=== PATIENT | male | born 1945 | race African-American/Black ===

== ENCOUNTER 2019-04-06 12:19 | Emergency (ER) | payer SELFPAY ==
[~2019-04-06] VITALS: Ht 182.9 cm; Wt 68.0 kg
[2019-04-06 12:35] VITALS: BP 107/89
[2019-04-06] MEDS ORDERED: METHYLPREDNISOLONE SOD SUCC 125 MG/2 ML VIAL IV STA (12:40)
[2019-04-06] MEDS ORDERED: IPRATROPIUM BROMIDE (0.02%) 0.5MG/2.5ML NEB HHN STA (12:40)
[2019-04-06] MEDS ORDERED: ALBUTEROL (0.083%) 2.5MG/3ML NEB HHN STA (12:40)
[2019-04-06] MEDS ORDERED: MAGNESIUM 2 G PREMIX 50 ML IV ONE (12:45)
[2019-04-06 13:07] LABS: CHLORIDE 105 mEq/L (98-107)
[2019-04-06 13:09] LABS: HEMATOCRIT. 42.6 % (42.0-52.0); HEMOGLOBIN. 13.6 g/dL (14.0-18.0); MEAN CORPUSCULAR HEMOGLOBIN 28.5 pg (28.0-32.0); MEAN CORPUSCULAR VOLUME 89.4 fL (80.0-94.0); MEAN PLATELET VOLUME 7.5 fl (7.4-10.4); PLATELET 355 x1000/uL (130-400); RED BLOOD CELL COUNT 4.77 mill/uL (4.7-6.1)
[2019-04-06] MEDS ORDERED: DOPAMINE 400MG/250ML PREMIX 250 ML IV ONE (13:11)
[2019-04-06] MEDS ORDERED: SODIUM BICARBONATE 8.4% 1 MEQ/ML 50ML SYR IV ONE (13:15)
[2019-04-06] MEDS ORDERED: EPINEPHRINE 0.1MG/ML (1:10,000) 10ML SYR ONE (13:15)
[2019-04-06] MEDS ORDERED: SODIUM CHLORIDE 0.9% 1,000 ML IV ONE (13:15)
[2019-04-06 13:55] LABS: PLATELET ESTIMATE NORMAL
== END 2019-04-06 16:18 | disposition expired ==
LOC: ER 14:04
DX: J96.00 Acute respiratory failure, unspecified whether with hypoxia or hypercapnia (principal); I46.9 Cardiac arrest, cause unspecified; J44.9 Chronic obstructive pulmonary disease, unspecified; R64 Cachexia; Z88.6 Allergy status to analgesic agent; Z88.2 Allergy status to sulfonamides; Z87.11 Personal history of peptic ulcer disease; Z87.891 Personal history of nicotine dependence; Z98.890 Other specified postprocedural states
CPT/HCPCS: 31500; 36415; 80053; 82962; 83880; 84484; 85025; 92950; 93005; 96365; 96375; 99291; J1265; J2930; J3475; J3490; J7030